=== PATIENT | female | born 1995 | race Caucasian/White ===

== ENCOUNTER 2020-08-28 05:10 | Emergency (ER) | payer OTHER ==
[~2020-08-28] VITALS: Ht 162.6 cm; Wt 88.0 kg
[~2020-08-28 05:10] MED LIST: ACET325C3 PO; DOCU-131 PO; IBUP-1222 PO; METH36TA19 PO; OXYC5TAB98 PO
--- NOTE | 2020-08-28 05:22 | NUR ---
PATIENT AMBULATED TO BATHROOM WITH STEADY GAIT. PATIENT REQUESTED TO USE RESTROOM PRIOR TO ASSESSMENT.
[2020-08-28] MEDS ORDERED: SODIUM CHLORIDE 0.9% 1,000ML IVBOLUS ONE (05:30)
[2020-08-28] MEDS ORDERED: SODIUM CHLORIDE FLUSH 10ML SYR IVF ONE (05:30)
[2020-08-28] MEDS ORDERED: ONDANSETRON 2MG/ML, 2ML IVPush ONE (05:30)
[2020-08-28 05:50] LABS: MICROSCOPIC INDICATED
[2020-08-28] MEDS ORDERED: MORPHINE SULFATE 4 MG/ML, 1ML ONE ×2 (05:52→06:21)
[2020-08-28] MEDS ORDERED: ONDANSETRON 2MG/ML, 2ML ONE (05:52)
[2020-08-28] MEDS: MORPHINE SULFATE 4 MG/ML, 1ML IVPush PRN ×2 (05:57→06:23)
[2020-08-28 06:01] LABS: BASOPHILS % (AUTO) 1 % (0-1); EOSINOPHILS % (AUTO) 2 % (1-7); LYMPHOCYTES % (AUTO) 32 % (22-44); MEAN CORPUSCULAR HEMOGLOBIN 29.4 pg (27.0-34.8); MEAN CORPUSCULAR HGB CONC 33.9 g/dL (32.4-35.8); MEAN PLATELET VOLUME 7.3 fL (7.4-10.4); MONOCYTES % (AUTO) 7 % (2-9); NEUTROPHILS % (AUTO) 59 % (42-75); PLATELET COUNT 371 x10^3/uL (130-400); RED BLOOD COUNT 5.01 x10^6/uL (3.82-5.3); RED CELL DISTRIBUTION WIDTH 12.2 % (9.6-15.2)
[2020-08-28 06:11] LABS: ALBUMIN 3.9 g/dL (3.4-5.0); ANION GAP 9 mmol/L (5-15); CALCIUM 8.6 mg/dL (8.5-10.1); CHLORIDE 107 mmol/L (98-107)
--- NOTE | 2020-08-28 06:15 | NUR ---
IV INSERTED BY BETI BARROW WITH MY SUPERVISION. PATIENT TOLERATED WELL. NO COMPLICATIONS. LABS DRAWN WELL AND WALKED TO LAB. PATIENT EDUCATED ON MORPHINE AND HIGH FALL RISK MEDICATION AND RECOMMENDATION PATIENT TRY TO STAY IN BED WITH BED RAIL UP. PATIENT HAS BEEN UNABLE TO TOLERATE THIS SHE HAS BEEN FOUND STANDING UP IN ROOM. STEADY GAIT. CALL WOLFF IN REACH. VISITOR REMAINS AT BEDSIDE. WILL CONTINUE TO MONITOR.
[2020-08-28 06:16] LABS: ALANINE AMINOTRANSFERASE 28 U/L (12-78); ALKALINE PHOSPHATASE 63 U/L (45-117); BILIRUBIN,TOTAL 0.5 mg/dL (0.2-1.0); CREATININE 1.02 mg/dL (0.55-1.02); TOTAL PROTEIN 7.4 g/dL (6.4-8.2)
[2020-08-28 06:18] LABS: MD NO
--- NOTE | 2020-08-28 06:49 | NUR ---
BEDSIDE REPORT GIVEN TO CARLOS TORIBIO.
[2020-08-28] MEDS ORDERED: KETOROLAC 30 MG/1 ML ONE (06:51)
--- NOTE | 2020-08-28 06:56 | NUR ---
Report received from CATARINO Gatica at bedside and care assumed. PA notified of continued moderate pain 7/10 rated by pt and new orders requested. Pt medicated with Toradol as ordered at this time. Updated pt to expected timeframes of results and ensured call light in reach.
[2020-08-28 06:58] VITALS: BP 133/77
[2020-08-28] MEDS ORDERED: KETOROLAC 30 MG/1 ML IVPush ONE (07:00)
== END 2020-08-28 07:36 | disposition home or self-care (01) ==
LOC: ED 07:28
DX: N20.1 Calculus of ureter (principal); Z90.49 Acquired absence of other specified parts of digestive tract; Z90.89 Acquired absence of other organs
CPT/HCPCS: 36415; 74176; 80053; 81001; 83690; 84703; 85025; 87086; 96374; 96375; 99284; J1885; J2270; J2405; J7030